=== PATIENT | female | born 2000 ===

== ENCOUNTER 2024-07-09 05:51 | Emergency (ER) | payer OTHER ==
[~2024-07-09] VITALS: Ht 152.4 cm; Wt 103.6 kg
[2024-07-09 06:55] VITALS: BP 99/55; PULSE 82; RESP 16; TEMP 98.5; O2SAT 98
[2024-07-09 07:16] LABS: COVID AG,FIA SOURCE NASAL SWAB
[2024-07-09 07:19] LABS: BASOPHILS % (AUTO) 0.7 % (0.0-2.0); EOSINOPHILS % (AUTO) 0.5 % (1.0-6.0); HEMATOCRIT 39.2 % (36-46); HEMOGLOBIN 12.5 g/dL (12.0-16.0); LYMPHOCYTES % (AUTO) 20.2 % (22.0-44.0); MEAN CORPUSCULAR HEMOGLOBIN 25.1 pg (26.0-34.0); MEAN CORPUSCULAR HGB CONC 31.9 G/dL (31.0-37.0); MEAN CORPUSCULAR VOLUME 79 fL (80-100); MONOCYTES # (AUTO) 0.5 K/uL (0.1-1.0); MONOCYTES % (AUTO) 5.1 % (2.0-9.0); NEUTROPHILS # (AUTO) 7.4 K/uL (1.8-7.7); NEUTROPHILS % (AUTO) 73.5 % (40.0-70.0); PLATELET COUNT (AUTO) 303 K/uL (150-450); RED BLOOD CELL COUNT(AUTO) 4.99 MIL/uL (4.00-5.20); WHITE BLOOD COUNT (AUTO) 10.1 K/uL (4.5-11.0)
[2024-07-09 07:28] LABS: ANION GAP 9 mmol/L (8-16); CALCIUM, TOTAL 9.2 mg/dL (8.8-10.5); CARBON DIOXIDE 28 mmol/L (22-29); CHLORIDE 107 mmol/L (98-107); CREATININE 0.81 mg/dL (0.60-1.30); GLOMERULAR FILTR. RATE CALC > 60 mL/min (>60); GLUCOSE,RANDOM 105 mg/dL (70-110); POTASSIUM 3.9 mmol/L (3.5-5.1); SODIUM SERUM 144 mmol/L (136-145); UREA NITROGEN, BLOOD 13 mg/dL (7-18)
[2024-07-09 07:43] LABS: ALCOHOL, BLOOD (SERUM) < 3 mg/dL (0-10)
[2024-07-09 07:54] LABS: SARS-COV2 (COVID) ANTIGEN,FIA Negative (Negative)
== END 2024-07-09 09:21 | disposition home or self-care (01) ==
LOC: EMS 05:55
DX: F32.A Depression, unspecified (principal); Z20.822 Contact with and (suspected) exposure to COVID-19
CPT/HCPCS: 99285; 87426; 80048; 85025; 36415; G0480